=== PATIENT | female | born 1950 | race Caucasian/White ===

== ENCOUNTER 2018-03-20 10:50 | Outpatient (CLI) | payer MEDICARE, OTHER ==
--- NOTE | 2018-03-20 12:13 | RAD ---
RIGHT KNEE FOUR VIEWS: HISTORY: Right knee pain. FINDINGS: Near complete joint space loss, medial compartment. Mild tricompartment osteophytosis. No acute fra cture or dislocation. Minimal fluid distention in the suprapatellar bursa. IMPRESSION: Osteoarthritic changes, right knee, with joint space narrowing at the medial compartment and a small joint effusion. POS: JOSE
== END 2018-03-20 10:51 | disposition home or self-care (01) ==
LOC: MADRAD 10:50
PROVIDERS: ATTEND Nurse Practitioner Family
DX: M25.561 Pain in right knee (principal); M17.11 Unilateral primary osteoarthritis, right knee